=== PATIENT | male | born 1990 | race Caucasian/White ===

== ENCOUNTER → 2021-08-15 14:05 | Outpatient (BNVA) | payer OTHER, SELFPAY | PROVIDERS: PCP Nurse Practitioner Family; Visit Provider Surgery Vascular Surgery | DX: I83.11 Varicose veins of right lower extremity with inflammation (principal) | CPT/HCPCS: 99202 ==

== ENCOUNTER → 2021-08-16 08:48 | Outpatient (BNVA) | payer OTHER, SELFPAY | PROVIDERS: PCP Nurse Practitioner Family; Visit Provider Surgery Vascular Surgery | DX: I83.11 Varicose veins of right lower extremity with inflammation (principal) | CPT/HCPCS: 36475 ==

== ENCOUNTER 2021-08-19 12:40 | Outpatient (REF) | payer OTHER, SELFPAY ==
--- NOTE | ~2021-08-19 | US_ITS ---
EXAMINATION: TRIPLEX SCANNING OF RIGHT LOWER EXTREMITY; SUPERFICIAL ULTRASOUND WITH DOPPLER OF RIGHT LOWER EXTREMITY CLINICAL INFORMATION: Status post RF ablation the right great saphenous vein . COMPARISON: None TECHNIQUE: Color flow triplex imaging and compression Doppler were performed as well as superficial ultrasound with Doppler. FINDINGS: TRIPLEX SCANNING OF RIGHT LOWER EXTREMITY: Respiratory variation, normal compression and augmented flow are noted throughout the lower extremity. The visualized common femoral vein, femoral vein, profunda femoral vein, popliteal vein and the calf veins show no evidence of deep venous thrombosis. There is no evidence of Polanco's cyst. SUPERFICIAL ULTRASOUND WITH DOPPLER OF RIGHT LOWER EXTREMITY: The right great saphenous vein is occluded with the exception of the 3.75 cm in length beyond the saphenofemoral junction. There is no extension of thrombus into the deep system. US/US venous duplex LE RT IMPRESSION: 1. Normal triplex scan of the right without evidence of deep venous thrombosis. 2. Excellent appearance status post ablation of the right great saphenous vein with the thrombosed portion ending 3.75 cm prior to the junction.
== END 2021-08-19 12:41 | disposition home or self-care (01) ==
LOC: HO.US 12:40
PROVIDERS: Visit Provider Surgery Vascular Surgery
DX: M79.604 Pain in right leg (principal); Z98.890 Other specified postprocedural states
CPT/HCPCS: 93971

== ENCOUNTER → 2021-08-29 09:15 | Outpatient (BNVA) | payer OTHER, SELFPAY | PROVIDERS: PCP Nurse Practitioner Family; Visit Provider Surgery Vascular Surgery | DX: I83.12 Varicose veins of left lower extremity with inflammation (principal) | CPT/HCPCS: 99212 ==

== ENCOUNTER → 2021-09-13 08:38 | Outpatient (BNVA) | payer OTHER, SELFPAY | PROVIDERS: PCP Nurse Practitioner Family; Visit Provider Surgery Vascular Surgery | DX: I83.12 Varicose veins of left lower extremity with inflammation (principal) | CPT/HCPCS: 36475 ==

== ENCOUNTER 2021-09-17 09:45 | Emergency (ER) | payer OTHER, SELFPAY ==
[2021-09-17 10:36] VITALS: BP 119/79; PULSE 77; RESP 18; TEMP 36.7; O2SAT 98; BMI 32.5
[2021-09-17] MEDS: Ibuprofen 800 MG TABLET PO (13:28)
[2021-09-17] MEDS: cephALEXin 500 MG CAPSULE PO (13:28)
[2021-09-17] MEDS: oxyCODONE HCl Immed Release 5 MG TABLET PO (13:28)
[2021-09-17] MEDS: Lidocaine HCl 2 % MPF 5 ML VIAL SUBCUT (13:29)
--- NOTE | 2021-09-17 14:20 | ED.SKABFB ---
HPI - Skin/Abscess/Foreign Bdy General Chief complaint: Skin/Abscess/Foreign Body Stated complaint: Insect bite R thigh Time Seen by Provider: 09/17/21 12:46 Source: patient and family Mode of arrival: ambulatory Limitations: no limitations History of Present Illness complaint: abscess/boil Onset (ago): day(s) Location: LLE (Thigh) Severity: severe Severity scale (1-10): >10 Quality: aching and constant Pain Consistency: constant Relieving factors: none Exacerbating factors: none Context: other (Possible insect bite) Associated symptoms: denies other symptoms and chills Treatments prior to arrival: attempted to drain pus at home Related Data Home Medications Medication Instructions Recorded Confirmed amitriptyline 25 mg tablet 25 mg PO DAILY 08/15/21 Previous Rx's Medication Instructions Recorded cephalexin 500 mg capsule 500 mg PO Q6H 10 Days #40 cap 09/17/21 doxycycline monohydrate 100 mg 100 mg PO BID 10 Days #20 tab 09/17/21 tablet ibuprofen 800 mg tablet 800 mg PO Q8H PRN #14 tab 09/17/21 oxycodone 5 mg tablet 5 mg PO Q6H PRN #14 tab 09/17/21 Allergies Allergy/AdvReac Type Severity Reaction Status Date / Time gabapentin AdvReac Mild Itching Verified 09/17/21 10:36 Review of Systems Review of Systems: Constitutional : Denies history of same, Denies any other sites involved, Denies IV drug use, Denies history of MRSA, Denies swollen glands, Denies injury, Denies Fever, Denies Chills, + Sig Pain, Denies Systemic symptoms Cardiovascular : No Chest Pain, No SOB Respiratory : No Dyspnea Gastrointestinal : No abdominal pain Musculoskeletal : No Joint Swelling Skin : + abscess with surrounding erythema with discharge, No skin laceration, No Foreign bodies, Denies bites Neuro : No Weakness, No Numbness/tingling Psych : No SI/HI/thoughts of self injury Yes all other systems are reviewed and are negative PMFSH Past Medical History Attestation statement: The following information was validated with the patient. Medical History Hypertension Social History Social History Patient Tobacco Use Status: Current everyday Tobacco user Smoking Start Date: 04/27/20 Cigarettes Per Day: 10 Physical Exam Vital Signs: Vital Signs: Last Vital Signs Temp 98.0 F 09/17/21 10:36 Pulse 77 09/17/21 10:36 Resp 18 09/17/21 10:36 BP 119/79 09/17/21 10:36 Pulse Ox 98 09/17/21 10:36 BMI result Body Mass Index 32.5 vital signs have been reviewed as normal and appeared to be correct. Blood pressure normal Heart rate normal. Respiration rate normal. Temperature normal. Oxygen saturation normal. Appearance: Alert. Oriented X3. No acute distress. Head: Normal external exam. Normocephalic. Atraumatic. Eyes: PERRLA. EOMI. Conjunctiva and sclera normal. Eyelids normal. ENT: Pharynx normal. Uvula midline. Moist mucous membranes. Neck: Normal inspection. Neck supple. FROM. CVS: Normal heart rate and rhythm. Respiratory: No respiratory distress. Painless inspiration. Skin: Skin warm and dry. Normal skin color. Normal skin turgor. No rashes/lesions/lacerations noted. Extremities: To left lateral aspect of the thigh/posterior patient has large abscess with moderate surrounding erythema/tenderness to palpation and warm to touch with mild purulent drainage consistent with abscess/cellulitis. No streaking is noted at this time. Otherwise he has full range of motion of the left hip/left knee no obvious injury and not consistent with septic joint. And all other extremities exhibit normal range of motion nontender. Neuro: Oriented X 3. No motor deficit. No sensory deficit. Reflexes normal. Normal steady gait. No focal neuro deficits noted. Vascular: + radial pulses/+ 2 distal pedal pulses/+2 dorsalis pedis b/l. Normal cap refill. No cyanosis noted to upper extremity nails and lower extremity toes nails. Course Course Course Narrative: Patient is now status post I&D of abscess. Patient tolerated procedure well. No complications. No packing placed. Patient does have surrounding cellulitis. No streaking noted. Moderate purulent drainage excreted. Nonadherent dressing placed. Will DC home with antibiotics and symptomatic treatment instructions return in 2-3 days and symptoms worsen and to follow up with the wound clinic and to follow up with PCP. Patient understands agrees with this plan. MDM - Skin/Abscess/Foreign Bdy Medical Records Attestation: I reviewed the patient's medical records. Procedures Abscess I/D Site: lower extremity Side (if applicable): left Local Anesthetic: lidocaine 2% Amount of anesthesia used (mL): 5 Technique: incised with blade Amount of fluid expressed (mL): 15 Sent for culture/gram staining?: No Irrigation: Yes Packing used?: none Complications: other (No complications) Discharge Plan Discharge Clinical Impression: Cellulitis, Abscess of skin or subcutaneous tissue Patient Disposition: Home, Self-Care Instructions: Cellulitis (ED), Abscess Incision and Drainage (DC) Prescriptions: New doxycycline monohydrate 100 mg tablet 100 mg PO BID 10 Days Qty: 20 0RF cephalexin 500 mg capsule 500 mg PO Q6H 10 Days Qty: 40 0RF ibuprofen 800 mg tablet 800 mg PO Q8H PRN (Reason: pain) Qty: 14 0RF oxycodone 5 mg tablet 5 mg PO Q6H PRN (Reason: pain) Qty: 14 0RF No Action amitriptyline 25 mg tablet 25 mg PO DAILY 0RF Referrals: [facility] Wound [facility] Management [Provider Group] - 3 days Stand Alone Forms: Work/School Release
[2021-09-17 14:30] VITALS: RESP 17
== END 2021-09-17 14:30 | disposition home or self-care (01) ==
PROVIDERS: Emergency Provider Emergency Medicine Emergency Medical Services
DX: L02.416 Cutaneous abscess of left lower limb (principal); L03.116 Cellulitis of left lower limb; I10 Essential (primary) hypertension; F17.200 Nicotine dependence, unspecified, uncomplicated
CPT/HCPCS: 10060; 99283; 99284

== ENCOUNTER 2021-09-19 13:46 | Outpatient (REF) | payer OTHER, SELFPAY ==
--- NOTE | ~2021-09-19 | US_ITS ---
EXAMINATION: US VENOUS ULTRASOUND WITH DOPPLER LOWER EXTREMITY, LEFT CLINICAL INFORMATION: Left leg pain status post GSV ablation COMPARISON: None TECHNIQUE: Ultrasound of the deep veins is performed from the hip to the calf with compression sonography and color and pulse Doppler assessment. Spectral analysis with color-flow imaging is performed. FINDINGS: There is normal venous compression and respiratory variation and augmented flow. The visualized common femoral vein, superficial femoral vein, profunda femoral vein, popliteal vein, and the trifurcation region shows no evidence of deep venous thrombosis. There is no significant popliteal fossa cyst. The great saphenous vein is occluded to 2 cm before its confluence with the common femoral vein. If the patient's symptoms persist, followup ultrasound in 5 days 7 days might be of value to exclude proximal propagation from a non-visualized calf vein. US/US venous duplex LE LT IMPRESSION: No DVT demonstrated in the left lower extremity. Normal appearance is status post left great saphenous vein ablation.
== END 2021-09-19 13:47 | disposition home or self-care (01) ==
LOC: HO.US 13:46
PROVIDERS: Visit Provider Surgery Vascular Surgery
DX: M79.605 Pain in left leg (principal)
CPT/HCPCS: 93971

== ENCOUNTER 2024-07-10 17:27 | Emergency (ER) | payer MEDICAID, SELFPAY ==
[2024-07-10 17:50] VITALS: BP 126/87; PULSE 121; RESP 18; TEMP 37.2; O2SAT 97; BMI 29.2
--- NOTE | 2024-07-10 17:51 | ED.URI ---
HPI - URI/Sore Throat General Chief Complaint: Skin/Abscess/Foreign Body Stated Complaint: abscess on tonsils/from [facility], [place] Time Seen by Provider: 07/10/24 17:57 Source: patient Mode of arrival: ambulatory Limitations: no limitations History of Present Illness ED Provider: Jass Florence DO HPI Narrative: 33-year-old male with no significant past medical history presents to the emergency department from urgent care due to high suspicion for left-sided peritonsillar abscess. Patient states he has had a sore throat, and painful swallowing as well as subjective fevers and chills at home over the last 4 days. He states his daughter was sick with a sore throat and he shared a drink at that time prior to the start of his symptoms. He reports nausea as well. He denies difficulty breathing. He denies previous history of strep infections. Related Data Home Medications ?Medication ?Instructions ?Recorded ?Confirmed amitriptyline 25 mg tablet 25 mg PO DAILY 08/15/21 Previous Rx's ?Medication ?Instructions ?Recorded cephalexin 500 mg capsule 500 mg PO Q6H 10 days #40 caps 09/17/21 doxycycline monohydrate 100 mg 100 mg PO BID cellulitis 10 days 09/17/21 tablet #20 tabs ibuprofen 800 mg tablet 800 mg PO Q8H PRN pain #14 tabs 09/17/21 oxycodone 5 mg tablet 5 mg PO Q6H PRN pain #14 tabs 09/17/21 amoxicillin 875 mg-potassium 1 tab PO BID 10 days #20 tabs 07/10/24 clavulanate 125 mg tablet Allergies Allergy/AdvReac Type Severity Reaction Status Date / Time gabapentin AdvReac Mild Itching Verified 07/10/24 17:53 Review of Systems Review of Systems: Yes all other systems are reviewed and are negative [facility] Past Medical History Medical History Hypertension Social History Social History Patient Tobacco Use Status: Current everyday Tobacco user Smoking Start Date: 04/27/20 Cigarettes Per Day: 10 Advance Directives: No Physical Exam Vital Signs: Vital Signs: Last Vital Signs Temp 99.1 F 07/10/24 18:51 Pulse 81 07/10/24 18:51 Resp 16 07/10/24 18:51 BP 112/65 07/10/24 18:51 Pulse Ox 98 07/10/24 18:51 O2 Del Method Room Air 07/10/24 18:51 BMI result Body Mass Index 29.2 Constitutional: ?Alert, oriented, speaking in full sentences, appears to be in some pain distress HEENT: ?Normocephalic, atraumatic. ?Moist mucous membranes. The patient has no trismus. He is phonating well with mild muffling of the voice. He has a Mallampati class 1. Does have significant left-sided peritonsillar edema with mild deviation of the uvula to the right when elevating his uvula. There is some right-sided submandibular lymphadenopathy which spares the mandibular angle. No induration of the submental region, no elevation of the tongue. Eyes: ?PERRL, EOMI Neck: ?Supple, nontender Chest: ?No chest wall tenderness Respiratory: no increased work of breathing Cardio: ?Regular rate and rhythm Back: ?Normal range of motion Skin: ?No rash, no lesions Neuro: ?Alert and oriented to person, place and time, moves all 4 extremities, no focal deficits Extremities: ?No swelling or tenderness, full range of motion Psych: ?Calm, alert and cooperative, appropriate behavior Course Course Course Narrative: This is a Rapid Medical Examination (RME) performed by Lillie Hansen PA-C in triage. Full HPI, ROS, assessment and treatment plan per primary provider in the Main ED. 33 yo male presents to the ER for evaluation of sore throat, swollen tonsils L>R, fever, cough for the last 4 days. went to urgent care today, concern for peritonsillar abscess so referred to ER. Exam c/w [employer] on the left w/ uvular deviation, muffled voice. tachycardic. Plan: labs, CT scan, IV abx, pain control Medications Administered Discontinued Medications Generic Name Dose Route Start Last Admin Trade Name Augie PRN Reason Stop Dose Admin Lidocaine HCl 1 appl 07/10/24 18:04 07/10/24 18:50 Lidocaine Hcl 4 % [id number] 4 Ml TOPICAL 07/10/24 18:05 1 appl ONCE ONE Administration Medical Decision Making Medical Decision Making [facility] Narrative: Patient presenting with signs and symptoms consistent with left-sided peritonsillar abscess. He is not septic appearing. Initially presented with tachycardia that improved spontaneously. He has no trismus and is able to open his mouth fairly wide to perform peritonsillar drainage which does yield a fair amount of purulent discharge. The patient tolerated the procedure well with the exception of a transient episode of diaphoresis consistent with vasovagal dizziness without syncope or near-syncope (please see procedure note). He is otherwise vitally stable. His labs show a mild leukocytosis with neutrophilic predominance, unremarkable chemistry, negative respiratory swab and positive strep swab. Patient has been started on 3 g of IV Unasyn and 6 mg of IV dexamethasone with anticipation to discharge to home with close follow up with Otolaryngology. Patient appears significantly improved after re-evaluation and has had no persistent bleeding after procedure and stable for discharge with strict and clear return precautions. Based on the patient's clinical presentation and postprocedural appearance, no indication for CT imaging soft tissue neck during this visit. Admission/Observation Consideration of admission/observation: Escalation of care including admission/observation considered Lab Data 07/10/24 17:47 07/10/24 17:48 Labs: Lab Results 07/10/24 07/10/24 Range/Units 17:47 17:48 WBC 12.9 H (4.8-10.8) X10*3/uL RBC 5.23 (4.60-5.80) X10*6/uL Hgb 15.3 (14.0-18.0) g/dl Hct 43.6 (42.0-52.0) % MCV 83.4 (80.0-98.0) fL MCH 29.3 (27.0-33.0) pg MCHC 35.1 (31.0-36.0) g/dl RDW 12.3 (11.0-16.0) % Plt Count 411 H (160-400) X10*3/uL MPV 9.4 (9.4-12.4) fL Immature Gran % (Auto) 0.7 H (0.0-0.4) % Neut % (Auto) 74.6 H (45-73) % Lymph % (Auto) 14.1 L (20-40) % Wirt % (Auto) 10.2 (2-11) % Eos % (Auto) 0.1 (0-4) % Baso % (Auto) 0.3 (0-2) % Lymph # (Auto) 1.8 (1.2-4.9) X10*3/uL Wirt # (Auto) 1.3 H (0.1-1.2) X10*3/uL Eos # (Auto) 0.0 (0.0-0.4) X10*3/uL Baso # (Auto) 0.0 (0.0-0.2) X10*3/uL Abs Immat Gran (auto) 0.09 H (0.00-0.03) X10*3/uL Absolute Neuts (auto) 9.6 H (2.0-8.3) x10*3/uL Absolute Nucleated RBC 0.000 (0.0-0.012) X10*3/uL Nucleated RBC % (auto) 0.0 (0.0-0.2) /100WBC Sodium 137 (135-145) mmol/L Potassium 3.8 (3.3-5.1) mmol/L Chloride 100 (96-108) mmol/L Carbon Dioxide 27 (22-29) mmol/L Anion Gap 14 (12-20) BUN 11 (9-16) mg/dL Creatinine 0.91 (0.5-1.4) mg/dL Estim Creat Clear Calc 139.7 Estimated GFR > 60 Random Glucose 96 (60-115) mg/dL Calcium 9.6 (8.4-10.2) mg/dL Magnesium 2.2 (1.6-2.6) mg/dL Total Bilirubin 1.0 (0.0-1.0) mg/dL Direct Bilirubin 0.5 (0.0-0.5) mg/dL AST 14 (5-37) U/L ALT 16 (0-40) U/L Alkaline Phosphatase 83 (39-117) U/L Total Protein 8.4 H (6.5-8.0) g/dL Albumin 4.2 (3.5-5.0) g/dL Influenza Type A (PCR) NEGATIVE (Negative) Influenza Type B (PCR) NEGATIVE (Negative) RSV RNA Qual (PCR) NEGATIVE (Negative) SARS-CoV-2 RNA (RT-PCR) NEGATIVE (Negative) S. pyogenes GrpA JILLIAN Positive A (Negative) Procedures Abscess I/D Site: oral (Left peritonsillar abscess) Side (if applicable): left Local Anesthetic: lidocaine 1%, lidocaine 2% and other anesthetic (Lidocaine applied with the laryngo-jet, topically with a small amount of 2% viscous lidocaine as well as 1% injected, approximately 2 mL) Amount of anesthesia used (mL): 4 Technique: needle aspiration and incised with blade (I aspirated approximately 2 mL of purulent discharge. My colleague, Dr. Chadd Leach, assisted with the procedure, making a small incision with a 10 blade scalpel and attempting to break up any additional loculations with a curved hemostat. This did not yield further purulent discharge.) Amount of fluid expressed (mL): 2 Sent for culture/gram staining?: No Packing used?: none Complications: other (Transient sweating and dizziness, minimal bleeding, minimal pain) Discharge Plan Discharge Clinical Impression: Abscess, peritonsillar Patient Disposition: Home, Self-Care Instructions: Peritonsillar Abscess (ED) Additional Instructions: You had a left-sided peritonsillar abscess drained successfully. We treated with IV antibiotics and steroids. We prescribed a 10 day course of Augmentin to continue treatment. Please take the full course. Be aware that this sometimes causes GI symptoms like diarrhea. Help manage the pain at home with 600 mg of ibuprofen every 6 hours with food and 1000 mg of Tylenol every 8 hours for the next week or 2. Do not take these medications shelter. If you develop any fevers over 100 degrees F, worsening swelling or pain, difficulty swallowing or breathing, change in voice or inability to open your mouth as wide, especially after receiving antibiotics for 2 days or longer, please return to the emergency department immediately. Otherwise, please follow up with an ears Nose and Throat doctor, call the contact information we provided tomorrow make an appointment. Prescriptions: New amoxicillin-pot clavulanate 875-125 mg tablet 1 tab PO BID 10 Days Qty: 20 0RF No Action doxycycline monohydrate 100 mg tablet 100 mg PO BID 10 Days Qty: 20 0RF cephalexin 500 mg capsule 500 mg PO Q6H 10 Days Qty: 40 0RF ibuprofen 800 mg tablet 800 mg PO Q8H PRN (Reason: pain) Qty: 14 0RF oxycodone 5 mg tablet 5 mg PO Q6H PRN (Reason: pain) Qty: 14 0RF amitriptyline 25 mg tablet 25 mg PO DAILY Print Language: Amharic
[2024-07-10 17:53] LABS: MANUAL DIFF FLAG NO
[2024-07-10 17:54] LABS: Basophils Percent Auto 0.3 % (0-2); Eosinophils Percent Auto 0.1 % (0-4); Hematocrit 43.6 % (42.0-52.0); Hemoglobin 15.3 g/dl (14.0-18.0); Imm Gran Abs Auto 0.09 X10*3/uL (0.00-0.03); Imm Gran Pct Auto 0.7 % (0.0-0.4); Lymphocytes Absolute Auto 1.8 X10*3/uL (1.2-4.9); Lymphocytes Percent Auto 14.1 % (20-40); Mean Corpuscular HGB Conc 35.1 g/dl (31.0-36.0); Mean Corpuscular Hemoglobin 29.3 pg (27.0-33.0); Mean Corpuscular Volume 83.4 fL (80.0-98.0); Mean Platelet Volume 9.4 fL (9.4-12.4); Monocytes Absolute Auto 1.3 X10*3/uL (0.1-1.2); Monocytes Percent Auto 10.2 % (2-11); Neutrophils Absolute Auto 9.6 x10*3/uL (2.0-8.3); Neutrophils Percent Auto 74.6 % (45-73); Platelet Count 411 X10*3/uL (160-400); Red Blood Count 5.23 X10*6/uL (4.60-5.80); Red Cell Distribution Width 12.3 % (11.0-16.0); White Blood Count 12.9 X10*3/uL (4.8-10.8)
[2024-07-10 18:01] LABS: IDNOW Serial# 08D9AD1C; Strep A Nucleic Acid Positive (Negative)
[2024-07-10 18:10] LABS: Alanine Aminotransferase 16 U/L (0-40); Albumin Level 4.2 g/dL (3.5-5.0); Alkaline Phosphatase 83 U/L (39-117); Anion Gap 14 (12-20); Aspartate Amino Transferase 14 U/L (5-37); Bilirubin Direct 0.5 mg/dL (0.0-0.5); Blood Urea Nitrogen 11 mg/dL (9-16); Calcium 9.6 mg/dL (8.4-10.2); Carbon Dioxide 27 mmol/L (22-29); Chloride 100 mmol/L (96-108); Creatinine Clr Calc Pharmacy 139.7; Estimated Glomerular Filt Rate > 60; Glucose Random 96 mg/dL (60-115); Magnesium 2.2 mg/dL (1.6-2.6); Potassium 3.8 mmol/L (3.3-5.1); Sodium 137 mmol/L (135-145); Total Protein 8.4 g/dL (6.5-8.0)
[2024-07-10 18:43] LABS: Influenza A PCR NEGATIVE (Negative); Influenza B PCR NEGATIVE (Negative); Resp Syncy Virus RNA Qual PCR NEGATIVE (Negative); SARS COV2 PCR INHOUSE NEGATIVE (Negative)
[2024-07-10] MEDS: Lidocaine HCl 4 % Laryng-O-Jet 4 ML 1 APPL TOPICAL (18:50)
[2024-07-10 18:51] VITALS: BP 112/65; PULSE 81; RESP 16; TEMP 37.3; O2SAT 98
--- NOTE | 2024-07-10 18:51 | PC.NURSE ---
tolerated mult attempts for needle aspiration and opening/draining of abscess well. became slightly lightheaded and diaphoretic. recovered quickly.
--- NOTE | 2024-07-10 19:01 | PC.NURSE ---
assumed care of pt at this time. 1st set of blood cultures obtained. 2nd set being obtained now, awaiting to administer iv abx.
[2024-07-10] MEDS: dexAMETHasone sod phosphate 4 MG/ML VIAL 6 MG IVPUSH (19:18)
[2024-07-10] MEDS: Ampicillin Sodium/Sulbactam Na 3 GM in 0.9 % Sodium Chloride 100 ML IV (19:18)
[2024-07-10 19:30] LABS: Lactic Acid 1.2 mmol/L (0.5-2.0)
[2024-07-10 20:20] VITALS: BP 112/65; PULSE 81; RESP 16; TEMP 37.3; O2SAT 98
== END 2024-07-10 20:20 | disposition home or self-care (01) ==
PROVIDERS: Physician Assistant; Emergency Provider Emergency Medicine; PCP Nurse Practitioner Family
DX: J36 Peritonsillar abscess (principal); Z03.818 Encounter for observation for suspected exposure to other biological agents ruled out; I10 Essential (primary) hypertension; F17.210 Nicotine dependence, cigarettes, uncomplicated
CPT/HCPCS: 0241U; 36415; 42700; 80048; 80076; 83605; 83735; 85025; 87040; 87651; 96365; 96375; 99284; J0295; J1100